=== PATIENT | male | born 1945 | race Caucasian/White ===

== ENCOUNTER → 2023-11-16 08:08 | Outpatient (REF) | payer BC, SELFPAY | LOC: HWRAD 08:08 | PROVIDERS: ATTENDING PHYSICIAN Internal Medicine Critical Care Medicine; FAMILY PHYSICIAN Family Medicine | DX: Z87.01 Personal history of pneumonia (recurrent) (principal) | CPT/HCPCS: 71046 ==

== ENCOUNTER → 2024-03-14 11:53 | Outpatient (REF) | payer BC, SELFPAY | LOC: RAD 11:53 | PROVIDERS: ATTENDING PHYSICIAN Physician Assistant; FAMILY PHYSICIAN Family Medicine | DX: R10.31 Right lower quadrant pain (principal) | CPT/HCPCS: 74177; Q9967 ==

== ENCOUNTER → 2024-08-03 07:46 | Outpatient (REF) | payer BC, SELFPAY | LOC: HWRAD 07:46 | PROVIDERS: ATTENDING PHYSICIAN Family Medicine | DX: M54.12 Radiculopathy, cervical region (principal) | CPT/HCPCS: 72052 ==

== ENCOUNTER 2024-08-07 03:24 | Emergency (ER) | payer BC, SELFPAY ==
[2024-08-07 03:26] VITALS: BP 154/98
[2024-08-07] MEDS: PEPCID 40 MG PO (03:35)
[2024-08-07] MEDS: BENADRYL 50 MG PO (03:36)
[2024-08-07 05:44] VITALS: BP 150/98; BMI 23.0
--- NOTE | 2024-08-07 07:14 | ED.GENMED ---
History of Present Illness
General
Chief Complaint: Allergic Reaction
Source: patient
Time Seen by Provider: 08/07/24 06:55
History of Present Illness
History of Present Illness:
79-year-old male who presents with a persistent pain in his left shoulder/neck and now with a rash. Patient states he was put on prednisone because he was having neck pain. Patient states that her neck pain a few days ago. Over the weekend he
noticed a rash and thought maybe was related to steroids so stopped taking it on Wednesday yesterday. The patient states that the pain has persisted and is like a burning pain down the shoulder. He was concerned about the rash. No fevers.
Past History
Past History
ED Past Medical History: Asthma, GERD, HTN, Hypercholesterolemia and Other (Diverticulosis, colon polyps)
Social History
Tobacco: Non-smoker
Phy Exam
Physical Exam
Physical Exam:
CONSTITUTIONAL Vital signs reviewed, Patient alert and oriented to person, place and time. Well-appearing
HEAD atraumatic, normocephalic.
EYES eyelids normal to inspection, Extraocular muscles intact, Conjunctiva normal, Sclera normal.
NECK normal range of motion, Trachea midline, no jugular venous distention.
RESP no respiratory distress
BACK No obvious deformities
UPPER EXTREMITY Gross Range of motion normal, gross motor strength normal
LOWER EXTREMITY Gross range of motion normal, Gross motor strength normal
NEURO Speech normal, No focal motor deficits include, Amna coma scale 15, Memory normal, Cranial Nerves intact to screening exam.
SKIN vesicular rash noted to the mid thoracic region on the left side of the back with clusters noted. The rash extends over the posterior left shoulder and down the lateral aspect of the left upper arm and a little bit to the forearm. There are
clusters of vesicles noted throughout the dermatome.
PSYCHIATRIC Patient oriented to person place and time, Normal affect.
Course
Orders/Labs/Results
Orders:
Orders
08/07/24 03:34
Diphenhydramine [Benadryl] 50 mg .ROUTE .STK-MED ONE
Famotidine [Pepcid] 40 mg .ROUTE .STK-MED ONE
08/07/24 03:35
Famotidine [Pepcid] 40 mg PO NOW STA
08/07/24 03:36
Diphenhydramine [Benadryl] 50 mg PO NOW STA
08/07/24 07:09
Valacyclovir HCl [Valtrex] 1,000 mg PO NOW STA
Vital Signs
Initial and Last Documented VS:
Initial Vital Signs
Temp Pulse Resp BP Pulse Ox
97.6 F 104 24 154/98 100
08/07/24 03:26 08/07/24 03:26 08/07/24 03:26 08/07/24 03:26 08/07/24 03:26
Last Documented Vital Signs
Temp Pulse Resp BP Pulse Ox
98.2 F 99 16 150/98 98
08/07/24 07:20 08/07/24 05:44 08/07/24 05:44 08/07/24 05:44 08/07/24 05:44
MDM/Problems Addressed
MDM/Problems Addressed:
Varicella-zoster, uncontrolled hypertension
*Pulse Oximetry
Patient hypoxic: no
*Critical Care Note
Total Time (30-74mins, 75-104mins- exclusive of procedures): Not Applicable
Data Reviewed
Source: patient
Patient Management
Escalation/DeEscalation of care consider admission/obs:
Considered additional steroids with patient already on steroids. Cover with Valtrex, pain control and Neurontin for neuritis. Recommended close PCP follow-up
ED Attending Note
-
Portions of this chart may have been created with voice recognition software.� Occasional wrong word or��sound alike� substitutions may have occurred due to the inherent limitations of voice recognition software.
Discharge Plan
Departure
Patient Disposition: Home (Routine Discharge)
Date of Disposition: 08/07/24
Time of Disposition: 07:14
Patient with high blood pressure during this ER visit?: Yes
Discharge Problem:
Herpes zoster
Instructions: Shingles
Prescriptions:
New
gabapentin 300 mg capsule
300 mg PO HS Qty: 30 0RF
valacyclovir 1 gram tablet
1,000 mg PO TID Qty: 30 0RF
hydrocodone-acetaminophen 5-325 mg tablet
2 tab PO Q6H PRN (Reason: Pain) Qty: 15 0RF
No Action
amlodipine 5 mg Tablet
5 mg PO QPM
triamcinolone acetonide 0.1 % Cream
1 applic TOPICAL DAILY
Patient Comments:
tamsulosin 0.4 mg Capsule
0.4 mg PO QPM
esomeprazole magnesium 40 mg Capsule,Delayed Release(Dr/Ec)
40 mg PO QPM
albuterol sulfate [ProAir HFA] 90 mcg/actuation Hfa Aerosol Inhaler
2 puff INHALATION R Q6HPRN PRN (Reason: asthma)
Patient Comments:
last used about one month ago
rosuvastatin 40 mg Tablet
40 mg PO QPM
acetaminophen 650 mg Tablet Extended Release
650 mg PO DAILYPRN PRN (Reason: arthritis pain)
triamcinolone acetonide 55 mcg Aerosol,Industry
2 spray INTRANASAL DAILY
fluticasone propionate 110 mcg/actuation Hfa Aerosol Inhaler
2 puff INHALATION R HS
cefdinir 300 mg capsule
300 mg PO BID 3 Days Qty: 6 0RF
azithromycin 250 mg tablet
250 mg PO DAILY 3 Days Qty: 3 0RF
prednisone 20 mg tablet
See Rx Instructions .ROUTE .COMPLEX Qty: 6 0RF
Rx Instructions:
Take 2 Tabs daily for 2 days THEN
Take 1 Tab daily for 2 days
ipratropium-albuterol 0.5 mg-3 mg(2.5 mg base)/3 mL solution for nebulization
3 ml inhalation Q8H PRN (Reason: shortness of breath) Qty: 90 0RF
Referrals:
Gloria Plasencia MD [Family Provider] -
Activity Restrictions/Additional Instructions:
Please finish your prednisone. Please see your doctor in the next 3 days for follow-up and reevaluation. If symptoms persist, the dose of gabapentin can be increased after 1 week. Return for fevers, worsening symptoms, more diffuse rash or any
other concerns.
Interventions
Interventions:
*Risk Screen - Suicide Last Done: 08/07/24 03:26
*General Assessment Last Done: 08/07/24 05:44
*Neglect/Abuse Screening Last Done: 08/07/24 03:26
*ED- Fall Risk Assessment Last Done: 08/07/24 05:44
*ED COVID-19 Vaccine History Last Done: 08/07/24 05:44
ED- Cardiac Assessment Last Done: 08/07/24 05:44
ED- Pulmonary Assessment Last Done: 08/07/24 05:44
ED-Skin Assessment Last Done: 08/07/24 05:44
Discharge Date and Time
Print Language: PORTUGUESE
[2024-08-07] MEDS: VALTREX 1000 MG PO (07:18)
== END 2024-08-07 07:38 | disposition home or self-care (01) ==
LOC: EMR 03:24
PROVIDERS: EMERGENCY PHYSICIAN Emergency Medicine; FAMILY PHYSICIAN Family Medicine
DX: B02.9 Zoster without complications (principal); I10 Essential (primary) hypertension; E78.00 Pure hypercholesterolemia, unspecified; J45.909 Unspecified asthma, uncomplicated
CPT/HCPCS: 99283

== ENCOUNTER → 2024-11-03 14:51 | Outpatient (REF) | payer BC, SELFPAY | LOC: RCS 14:51 | PROVIDERS: ATTENDING PHYSICIAN Student in an Organized Health Care Education/Training Program; FAMILY PHYSICIAN Family Medicine | DX: R07.89 Other chest pain (principal); Z82.49 Family history of ischemic heart disease and other diseases of the circulatory system | CPT/HCPCS: 93017 ==